=== PATIENT | male | born 1970 | race Caucasian/White ===

== ENCOUNTER 2022-03-30 08:53 | Outpatient (CLI) | payer BC, SELFPAY ==
[2022-03-30 13:42] LABS: Albumin* 4.5 g/dL (3.3-5.0); Chloride* 103 mmol/L (96-114)
[2022-03-30 13:43] LABS: Sodium* 138 mmol/L (135-149)
[2022-03-30 13:45] LABS: Bilirubin Total* 0.8 mg/dL (0.1-1.5); Blood Urea Nitrogen* 11 mg/dL (5-24); Carbon Dioxide* 27 mmol/L (20-32); Cholesterol* 229 mg/dL (90-199); Estimated Glomerular Filt Rate 92 ml/min; Total Protein* 7.3 g/dL (6.0-8.3)
[2022-03-30 13:46] LABS: Alanine Aminotransferase* 18 U/L (4-50); Alkaline Phosphatase* 68 U/L (40-150); Aspartate Amino Transferase* 29 U/L (12-35); Calcium* 9.4 mg/dL (8.4-10.6); Glucose* 95 mg/dL (60-115); Triglycerides* 74 mg/dL (40-149)
[2022-03-30 13:47] LABS: HDL Cholesterol* 53 mg/dL (>=40); LDL Cholesterol Calculated 161 mg/dL (<100); Potassium* 4.3 mmol/L (3.6-5.1)
[2022-04-04 12:34] LABS: FACV Specimen Whole Blood; Factor V Leiden (F5) Mutation Negative
== END 2022-03-30 08:54 | disposition home or self-care (01) ==
PROVIDERS: PCP Emergency Medicine; Visit Provider Emergency Medicine
DX: Z00.00 Encounter for general adult medical examination without abnormal findings (principal); I26.99 Other pulmonary embolism without acute cor pulmonale; Z83.2 Family history of diseases of the blood and blood-forming organs and certain disorders involving the immune mechanism; Z13.6 Encounter for screening for cardiovascular disorders
CPT/HCPCS: 80053; 80061; 81240; 81241

== ENCOUNTER 2022-04-11 12:03 | Outpatient (CLI) | payer BC, SELFPAY | END 2022-04-11 12:04 | disposition home or self-care (01) | LOC: OP CLINIC 12:03 | PROVIDERS: PCP Emergency Medicine; Visit Provider Surgery | DX: Z12.11 Encounter for screening for malignant neoplasm of colon (principal); K63.5 Polyp of colon | CPT/HCPCS: 45385; 88305; J1200; J2250; J3010 ==

== ENCOUNTER 2023-09-04 19:04 | Outpatient (CLI) | payer BC, SELFPAY | END 2023-09-04 19:05 | disposition home or self-care (01) | PROVIDERS: PCP Emergency Medicine; Visit Provider Emergency Medicine | DX: Z11.3 Encounter for screening for infections with a predominantly sexual mode of transmission (principal) | CPT/HCPCS: 86592; 86703; 86706; 86803; 87491; 87591 ==